=== PATIENT | male | born 1955 | race African-American/Black ===

== ENCOUNTER 2017-08-19 22:21 | Inpatient (IN) | payer MEDICARE, MEDICAID ==
[~2017-08-19] VITALS: Ht 188 cm; Wt 75.7 kg
[~2017-08-19 22:21] MED LIST: Ipratropium 0.02% Inh Soln 2.5ml UD HHN ONE; Solu-MEDROL 125mg Inj IVP ONE
[2017-08-19 22:25] VITALS: BP 140/98
--- NOTE | 2017-08-19 22:25 | Emergency Room Report ---
History of Present Illness General Chief Complaint: Dyspnea/Respdistress Source: Patient, EMS Present Illness HPI The patient presents via EMS for dyspnea. He has a history of COPD. He was smoking and drinking alcohol tonight. He was using his own inhalers at home but still felt short of breath. His initial oxygen saturation in the field was 92%. They gave him an albuterol treatment which is helping somewhat. The patient also had been drinking leni and is complaining about some abdominal discomfort. This is more distension feeling with pain rated 6/10, pressure and constant, non-radiating. No vomiting, diarrhea or constipation. He denies chest pain or sore throat. The shortness of breath has been fairly severe. No calf swelling/pain, dysuria, change in bowels. No rashes, headache. H/O chronic renal insufficiency. No dysuria, hematuria. Allergies: Coded Allergies: No Known Allergies (Unverified , 08/19/17) Patient History Past Medical History: see triage record Social History: Reports: smoking, alcohol use Social History Narrative at home Reviewed Nursing Documentation: PMH: Agreed, PSxH: Agreed Nursing Documentation-PMH Past Medical History: No History, Except For Hx Cardiac Problems: No - HIV+ Hx Hypertension: Yes Hx COPD: Yes Hx Dialysis: No - Chronic Renal Failure Review of Systems All Other Systems: negative except mentioned in HPI Physical Exam Vital Signs Date Time Temp Pulse Resp B/P (MAP) Pulse Ox O2 Delivery O2 Flow Rate FiO2 08/19/17 22:05 98.1 129 28 140/98 95 15.0 Sp02 EP Interpretation: reviewed, normal General Appearance: well appearing, no apparent distress, GCS 15 Head: normocephalic Eyes: bilateral eye PERRL, bilateral eye Scleral Injection ENT: moist mucus membranes Neck: supple Respiratory: rales, wheezing, expiration, inspiration Cardiovascular #1: regular rate, rhythm Cardiovascular #2: 2+ radial (R) Gastrointestinal: normal inspection, normal bowel sounds, non tender, no mass, distended - protruberant Musculoskeletal: back normal, gait/station normal, normal range of motion Neurologic: alert, oriented x3, grossly normal Psychiatric: depressed affect Skin: normal inspection, warm/dry Procedures Critical Care Time Critical Care Time Total Critical Care Time: 45 min bedside evaluation and treatment excludes procedures (EKG). Reason for critical care: respiratory distress, respiratory failure, sepsis Possible complications: hypotension, hypertension, AZ, shock, arrhythmias, metabolic acidosis, end organ damage, respiratory failure. Interventions: BIPAP and other respiratory interventions, sepsis resuscitation and treatment Course: Patient with resp distress. Aggressive treatment. ABG with resp failure and BIPAP started. Tolerated poorly. Repeated evaluations with adjustment of oxygen delivery (Venti mask, NC and others). Treatment of sepsis with fluid bolus and antibiotics. Higher level of admission. Consultations: nursing staff, EMS, respiratory, admitting MD Performed by: Dr. Gordon Tolerated well condition = serious Medical Decision Making Diagnostic Impression: Primary Impression: Right lower lobe pneumonia Qualified Codes: J18.1 - Lobar pneumonia, unspecified organism Additional Impressions: COPD exacerbation Sepsis Qualified Codes: A41.9 - Sepsis, unspecified organism Abdominal pain Qualified Codes: R10.84 - Generalized abdominal pain Respiratory distress ER Course Patient presents with dyspnea, wheezing, rales and hypoxia history of COPD. Differential includes pneumonia, bronchitis, exacerbation of COPD amongst others. We need to exclude acute myocardial infarction. Also regarding abdominal pain alcohol may be a factor but we need to ascertain whether he's actively bleeding and differential also includes ulcer, GERD and pancreatitis. Evaluation will be with EKG, chest x-ray and labs. He'll be treated with Solu Medrol, Pepcid, albuterol and Atrovent and mild hydration. Consideration for analgesia. EKG shows sinus tachycardia. Chest x-ray shows right-sided infiltrate with COPD. Labs are significant for leukocytosis. The patient is somewhat improved. Antibiotics are begun. The patient needs admission to the hospital for IV antibiotics due to comorbidities and risk for sepsis. Elevated lactic acid. Fluid bolus ordered. Grunting and wheezing. Repeat tx ordered. (ABG done before treatments). Sig hypoxia. Might need BIPAP. Will move up to SEAN. BIPAP ordered and started. Admit Dr. Gordon. BIPAP not tolerated. Change to 50% vent mask. After breathing treatments some improvement. Multiple re-evaluations with adjustment of oxygen. Analgesia repeated for abdominal pain. Laboratory Tests Test 08/19/17 22:40 08/20/17 01:30 08/20/17 01:40 White Blood Count 22.0 K/UL (4.8-10.8) H Red Blood Count 3.57 M/UL (4.70-6.10) L Hemoglobin 13.5 G/DL (14.2-18.0) L Hematocrit 40.5 % (42.0-52.0) L Mean Corpuscular Volume 113 FL (80-99) H Mean Corpuscular Hemoglobin 37.9 PG (27.0-31.0) H Mean Corpuscular Hemoglobin Concent 33.5 G/DL (32.0-36.0) Red Cell Distribution Width 13.9 % (11.6-14.8) Platelet Count 187 K/UL (150-450) Mean Platelet Volume 7.5 FL (6.5-10.1) Neutrophils (%) (Auto) % (45.0-75.0) Lymphocytes (%) (Auto) % (20.0-45.0) Monocytes (%) (Auto) % (1.0-10.0) Eosinophils (%) (Auto) % (0.0-3.0) Basophils (%) (Auto) % (0.0-2.0) Differential Total Cells Counted 100 Neutrophils % (Manual) 83 % (45-75) H Lymphocytes % (Manual) 8 % (20-45) L Monocytes % (Manual) 2 % (1-10) Eosinophils % (Manual) 0 % (0-3) Basophils % (Manual) 0 % (0-2) Band Neutrophils 7 % (0-8) Platelet Estimate Adequate Platelet Morphology Normal Red Blood Cell Morphology Macrocytosis 1+ Prothrombin Time 11.9 SEC (9.30-11.50) H Prothrombin Time INR 1.1 (0.9-1.1) PTT 41 SEC (23-33) H Sodium Level 134 MMOL/L (136-145) L Potassium Level 3.5 MMOL/L (3.5-5.1) Chloride Level 97 MMOL/L (98-107) L Carbon Dioxide Level 26 MMOL/L (21-32) Anion Gap 12 mmol/L (5-15) Blood Urea Nitrogen 18 mg/dL (7-18) Creatinine 1.4 MG/DL (0.55-1.30) H Estimate Glomerular Filtration Rate > 60 mL/min (>60) Glucose Level 126 MG/DL (74-106) H Lactic Acid Level 3.60 mmol/L (0.66-2.22) H Calcium Level 8.3 MG/DL (8.5-10.1) L Total Bilirubin 0.3 MG/DL (0.2-1.0) Aspartate Amino Transferase (AST) 44 U/L (15-37) H Alanine Aminotransferase (ALT) 28 U/L (12-78) Alkaline Phosphatase 70 U/L (46-116) Total Creatine Kinase 350 U/L (26-308) H Troponin I 0.005 ng/mL (0.000-0.056) Pro-B-Type Natriuretic Peptide 491 pg/mL (0-125) H Total Protein 7.0 G/DL (6.4-8.2) Albumin 3.0 G/DL (3.4-5.0) L Globulin 4.0 g/dL Albumin/Globulin Ratio 0.8 (1.0-2.7) L Serum Alcohol < 3 mg/dL Urine Color Pale yellow Urine Appearance Clear Urine pH 5 (4.5-8.0) Urine Specific [place] 1.015 (1.005-1.035) Urine Protein 2+ (NEGATIVE) H Urine Glucose (UA) Negative (NEGATIVE) Urine Ketones Negative (NEGATIVE) Urine Occult Blood 2+ (NEGATIVE) H Urine Nitrite Negative (NEGATIVE) Urine Bilirubin Negative (NEGATIVE) Urine Urobilinogen Normal MG/DL (0.0-1.0) Urine Leukocyte Esterase Negative (NEGATIVE) Urine RBC 5-10 /HPF (0 - 0) H Urine WBC 0-2 /HPF (0 - 0) Urine Squamous Epithelial Cells Few /LPF (NONE/OCC) Urine Bacteria None /HPF (NONE) Urine Coarse Granular Casts 0-2 /LPF (NONE) H Urine Opiates Screen Negative (NEGATIVE) Urine Barbiturates Screen Negative (NEGATIVE) Phencyclidine (PCP) Screen Negative (NEGATIVE) Urine Amphetamines Screen Negative (NEGATIVE) Urine Benzodiazepines Screen Negative (NEGATIVE) Urine Cocaine Screen Negative (NEGATIVE) Urine Marijuana (THC) Screen Positive (NEGATIVE) H Arterial Blood pH 7.456 (7.350-7.450) Arterial Blood Partial Pressure CO2 27.9 mmHg (35.0-45.0) L Arterial Blood Partial Pressure O2 49.4 mmHg (75.0-100.0) Arterial Blood HCO3 19.2 mmol/L (22.0-26.0) L Arterial Blood Oxygen Saturation 85.4 % (92.0-98.0) L Arterial Blood Base Excess -3.4 Gage Test Positive Microbiology Date/Time Source Procedure Growth Status 08/19/17 23:30 Nasal Nares Influenza Types A,B Antigen (RAMIN) - Final Complete EKG Diagnostic Results Rate: tachycardiac Rhythm: NSR ST Segments: no acute changes Rhythm Strip Diag. Results EP Interpretation: yes Rhythm: no PVC's, no ectopy, other - st Chest X-Ray Diagnostic Results Chest X-Ray Diagnostic Results : Chest X-Ray Ordered: Yes # of Views/Limited/Complete: 1 View Indication: Shortness of Breath EP Interpretation: Yes Interpretation: no effusion, no pneumothorax, other - R infiltrate Impression: Other PA Scribe Text Electronically signed by Jasper Gordon MD Status: improved Disposition: ADMITTED INPATIENT Condition: Serious Jasper Gordon M.D. Aug 19, 2017 22:25
[2017-08-19] MEDS: Albuterol ud Inhalation HHN SCH ×3 (22:32→22:55)
[2017-08-19 23:13] LABS: ANION GAP 12 mmol/L (5-15); CALCIUM 8.3 MG/DL (8.5-10.1); CARBON DIOXIDE 26 MMOL/L (21-32); CHLORIDE 97 MMOL/L (98-107); CREATININE 1.4 MG/DL (0.55-1.30); GLOMERULAR FILTRATION RATE > 60 mL/min (>60); POTASSIUM 3.5 MMOL/L (3.5-5.1); SODIUM 134 MMOL/L (136-145)
[2017-08-19 23:18] LABS: MEAN CORPUSCULAR HEMOGLOBIN 37.9 PG (27.0-31.0); MEAN CORPUSCULAR HGB CONC 33.5 G/DL (32.0-36.0); MEAN CORPUSCULAR VOLUME 113 FL (80-99); MEAN PLATELET VOLUME 7.5 FL (6.5-10.1); PLATELET COUNT 187 K/UL (150-450); RED BLOOD COUNT 3.57 M/UL (4.70-6.10); RED CELL DISTRIBUTION WIDTH 13.9 % (11.6-14.8)
[2017-08-19 23:21] LABS: INR 1.1 (0.9-1.1); PROTHROMBIN TIME 11.9 SEC (9.30-11.50)
[2017-08-19] MEDS ORDERED: cefTRIAXone 1 GM in NS 55 ML IVPB ONE (23:30)
[2017-08-19 23:36] LABS: ALANINE AMINOTRANSFERASE 28 U/L (12-78); ALBUMIN/GLOBULIN RATIO 0.8 (1.0-2.7); ASPARTATE AMINO TRANSFERASE 44 U/L (15-37)
[2017-08-19 23:53] LABS: BAND NEUTROPHILS % (MANUAL) 7 % (0-8); LYMPHOCYTES % (MANUAL) 8 % (20-45); NEUTROPHILS % (MANUAL) 83 % (45-75); TOTAL CELLS COUNTED 100
[2017-08-19 23:54] LABS: BASOPHILS % (MANUAL) 0 % (0-2); EOSINOPHILS % (MANUAL) 0 % (0-3); PLATELET ESTIMATE ADEQUATE; PLATELET MORPHOLOGY NORMAL
[2017-08-19 23:55] LABS: MACROCYTES 1+
[2017-08-20] VITALS (8 sets, daily range): BP systolic 134–167; BP diastolic 82–120
[2017-08-20 00:07] LABS: REFLEX LACTIC ACID YES OR NO YES
[2017-08-20 00:08] LABS: ALCOHOL < 3 mg/dL
[2017-08-20] MEDS ORDERED: Morphine Sulfate 2mg/ml Inj IVP ONE (01:45)
[2017-08-20 02:06] LABS: ABG ALLEN TEST POSITIVE; ABG BASE EXCESS -3.4; ABG PCO2 27.9 mmHg (35.0-45.0)
[2017-08-20 02:06] LABS: APPEARANCE,URINE CLEAR; KETONES,URINE NEGATIVE (NEGATIVE); LEUKOCYTE ESTERASE ,URINE NEGATIVE (NEGATIVE); NITRITE,URINE NEGATIVE (NEGATIVE); PH,URINE 5 (4.5-8.0); PROTEIN,URINE 2+ (NEGATIVE); UROBILINOGEN,URINE NORMAL MG/DL (0.0-1.0)
[2017-08-20] MEDS: Albuterol ud Inhalation HHN SCH ×6 (02:19→06:15)
[2017-08-20 02:21] LABS: SQUAMOUS EPITHELIAL CELL,UR FEW /LPF (NONE/OCC); WBC,URINE 0-2 /HPF (0 - 0)
[2017-08-20 02:22] LABS: COARSE GRANULAR CASTS,URINE 0-2 /LPF
[2017-08-20] MEDS: Solu-MEDROL 125mg Inj IVP SCH ×3 (06:40→22:05)
[2017-08-20] MEDS: Albuterol/Ipratropium 3ml neb HHN SCH ×5 (07:00→23:00)
[2017-08-20] MEDS: Azithromycin 250mg tab ORAL SCH (09:21)
--- NOTE | 2017-08-20 09:42 | Diagnostic Imaging Report ---
Indication: Reason For Exam: DYSPNEA Technique: XRAY Chest 1v Comparison:None Findings: The heart is normal in size. There is elevation of the apparent right hemidiaphragm. Linear densities are noted in both lung bases. Patchy airspace disease is present in the right midlung. There is also some linear density in the left mid lung. No pleural fluid. The bones are unremarkable. Impression: Bilateral atelectasis. Patchy airspace disease or atelectasis in the right midlung and in the left midlung.
[2017-08-20] MEDS ORDERED: NKM (10:48)
--- NOTE | 2017-08-20 17:15 | Consultation ---
DATE OF CONSULTATION: 08/20/2017 INFECTIOUS DISEASES CONSULTATION CONSULTING PHYSICIAN: Rosalia Almeida M.D. REFERRING PHYSICIAN: Jasper Gordon M.D. REASON FOR CONSULTATION: Pneumonia. HISTORY OF PRESENTING ILLNESS: This is a 62-year-old gentleman with history of HIV, hypertension, and COPD, who came in with shortness of breath and cough. He was found to have pneumonia and an Infectious Diseases consultation has been obtained for antibiotics. PAST MEDICAL HISTORY: 1. History of HIV. 2. History of Hypertension. 3. COPD. 4. Renal failure, on dialysis. MEDICATIONS: As an inpatient, the patient is on ceftriaxone, famotidine, azithromycin, albuterol, and Solu-Medrol. ALLERGIES: No known drug allergies. SOCIAL HISTORY: He is a smoker. He drinks alcohol. No history of drug use. FAMILY HISTORY: Unknown. REVIEW OF SYSTEMS: RESPIRATORY: He had fever and chills. He has cough. He has shortness of breath. No chest pain. CARDIAC: No chest pain. No palpitations. No dizziness. No syncope. GASTROINTESTINAL: No nausea. No vomiting. No abdominal pain or diarrhea. PHYSICAL EXAMINATION: VITAL SIGNS: Temperature of 97.7 degrees, T-max of 98.3 degrees, pulse of 114, respiratory rate 24, blood pressure 151/81, and O2 saturation of 97%. HEENT: Pupils equally reactive to light and accommodation. Mouth appears clean with no thrush. NECK: Supple. No adenopathy. No JVD. CARDIOVASCULAR: Regular rate and rhythm. No murmurs. LUNGS: Clear to auscultation bilaterally. No crackles. No wheezes. ABDOMEN: Soft and nontender. No organomegaly. EXTREMITIES: No cyanosis. No clubbing. No edema. LABORATORY DATA: White count 22, hemoglobin 13.5, hematocrit 40.5, MCV 113, and platelet count of 187,000 with neutrophils of 83%. Sodium 134, potassium 3.5, chloride 97, bicarbonate 26, BUN 18, creatinine 1.4, glucose 126, and calcium 8.3. Total bilirubin 0.3. AST 44, ALT 28, and alkaline phosphatase 70. CK of 350, troponin 0.005, and beta-natriuretic peptide 491. Total protein 7. Albumin 3. UA showing 0 to 2 white cells. Nasal swab was negative for influenza A and B. Chest x-ray showing bibasilar atelectasis, patchy airspace disease or atelectasis in the right mid lung and left mid lung. ASSESSMENT: 1. This is a 62-year-old gentleman with history of chronic obstructive pulmonary disease, renal failure, and hypertension, who comes in and is found to have pneumonia bilaterally. 2. Leukocytosis. 3. History of human immunodeficiency virus. PLAN: 1. Continue ceftriaxone and azithromycin. 2. We will order sputum for Gram stain and culture. 3. We will order for serum Legionella antibody. 4. We will order for mycoplasma serology. 5. We will follow up cultures and adjust antibiotics accordingly. I would like to thank Dr. Gordon for this consultation. Rosalia Almeida M.D. DR: Joe JOB#: [id number] CC: Jasper Gordon M.D.
--- NOTE | 2017-08-20 17:57 | Consultation ---
Consult Note Consult Note PULMONARY CONSULTATION CONSULTING PHYSICIAN: Germán Schmidt M.D. REFERRING PHYSICIAN: Jasper Gordon M.D. REASON FOR CONSULTATION: Pneumonia. HISTORY OF PRESENTING ILLNESS: This is a 62-year-old gentleman with history of HIV, hypertension, and COPD, who came in with shortness of breath and cough. He was found to have pneumonia. Overnight he was on BiPAP; this has now been dioscontinued. PAST MEDICAL HISTORY: 1. History of HIV. 2. History of Hypertension. 3. COPD. 4. Renal failure, on dialysis. MEDICATIONS: As an inpatient, the patient is on ceftriaxone, famotidine, azithromycin, albuterol, and Solu-Medrol. ALLERGIES: No known drug allergies. SOCIAL HISTORY: He is a smoker. He drinks alcohol. No history of drug use. FAMILY HISTORY: Unknown. REVIEW OF SYSTEMS: RESPIRATORY: He had fever and chills. He has cough. He has shortness of breath. No chest pain. CARDIAC: No chest pain. No palpitations. No dizziness. No syncope. GASTROINTESTINAL: No nausea. No vomiting. No abdominal pain or diarrhea. PHYSICAL EXAMINATION: VITAL SIGNS: Temperature of 97.7 degrees, T-max of 98.3 degrees, pulse of 114, respiratory rate 24, blood pressure 151/81, and O2 saturation of 97%. HEENT: Pupils equally reactive to light and accommodation. Mouth appears clean with no thrush. NECK: Supple. No adenopathy. No JVD. CARDIOVASCULAR: Regular rate and rhythm. No murmurs. LUNGS: Clear to auscultation bilaterally. No crackles. No wheezes. ABDOMEN: Soft and nontender. No organomegaly. EXTREMITIES: No cyanosis. No clubbing. No edema. LABORATORY DATA: White count 22, hemoglobin 13.5, hematocrit 40.5, MCV 113, and platelet count of 187,000 with neutrophils of 83%. Sodium 134, potassium 3.5, chloride 97, bicarbonate 26, BUN 18, creatinine 1.4, glucose 126, and calcium 8.3. Total bilirubin 0.3. AST 44, ALT 28, and alkaline phosphatase 70. CK of 350, troponin 0.005, and beta-natriuretic peptide 491. Total protein 7. Albumin 3. UA showing 0 to 2 white cells. Nasal swab was negative for influenza A and B. Chest x-ray showing bibasilar atelectasis, patchy airspace disease or atelectasis in the right mid lung and left mid lung. ASSESSMENT: 1. This is a 62-year-old gentleman with history of chronic obstructive pulmonary disease, renal failure, and hypertension, who comes in and is found to have pneumonia bilaterally. 2. Leukocytosis. 3. History of human immunodeficiency virus. PLAN: 1. Continue ceftriaxone and azithromycin. 2. DC BiPAP; continue O2. I would like to thank Dr. Gordon for this consultation. Marti Busby Omar Syed MD Aug 20, 2017 17:57
--- NOTE | 2017-08-20 19:00 | History and Physical Report ---
DATE OF ADMISSION: 08/19/2017 REASON FOR ADMISSION: Acute respiratory distress, hypoxia and community-acquired pneumonia in a human immunodeficiency virus positive patient. HISTORY OF PRESENT ILLNESS: This is a 62-year-old male with human immunodeficiency virus developed worsening cough, congestion and shortness of breath this evening. He has been using inhalers, but did not improve. He notes drinking and smoking excessively this afternoon. He was seen in the emergency room and worsening respiratory parameters were noted prompting hospitalization. The patient is a poor historian. He is also uncooperative with questioning and does not know any information about his usual medications, although states there are many. PAST MEDICAL HISTORY: COPD, HIV positive, hypertension and chronic kidney disease. MEDICATIONS: Prior to admission, not known. ALLERGIES: None known. SOCIAL HISTORY: Positive smoking and alcohol as described above. Denied substance abuse. FAMILY HISTORY: Noncontributory. REVIEW OF SYSTEMS: The patient unable to cooperate for additional data at this time. PHYSICAL EXAMINATION: VITAL SIGNS: Afebrile, blood pressure 140/98, pulse 129, respirations 28 and oxygen saturation on 15 liters 95%. No thrush. Accessory muscle use. LUNGS: Bilateral breath sounds with rhonchi. Expiratory wheezes and few rales. HEART: Regular rhythm and rate. Normal S1 and S2 with a fourth heart sound. ABDOMEN: Soft and nontender. EXTREMITIES: No edema. LABORATORY AND DIAGNOSTIC DATA: Chest x-ray revealed bilateral atelectasis, right and left mid lung patchy infiltrate. EKG, sinus tachycardia. Laboratory data reviewed. IMPRESSION: 1. Community-acquired pneumonia. 2. Human immunodeficiency virus positive. 3. Chronic obstructive pulmonary disease with acute exacerbation and on bronchospasm. 4. Accelerated hypertension/hypertensive urgency. 5. Lactic acidosis. 6. Hypoxia. PLAN: 1. Casey culture. 2. Antimicrobials. 3. Inhaled bronchodilators. 4. Intravenous steroids. 5. Cautious hydration. 6. BiPAP support. 7. Titrate antihypertensives. 8. Attempt to expand database and resume human immunodeficiency virus medications. 9. Pulmonary and Infectious Disease consultation. Jasper Gordon M.D. DR: RHIANNON JOB#: [id number] CC: BEV
--- NOTE | 2017-08-20 19:00 | Progress Note ---
DATE: 08/20/2017 INTERNAL MEDICINE PROGRESS NOTE SUBJECTIVE: The patient still has cough, congestion, and shortness of breath. He is unable to provide information on his usual medication regimen still, which includes HIV drugs. He is less short of breath than he was yesterday evening and had been on BiPAP support. OBJECTIVE: VITAL SIGNS: Blood pressure 167/101, pulse 117, respirations 23, and afebrile. Oxygen saturation on 2 liters is 91% to 98%. LUNGS: Mild accessory muscle use. Coarse breath sounds with rhonchi bilaterally. Few expiratory wheezes. HEART: Regular rhythm and rate. Normal S1 and S2 with a fourth heart sound. ABDOMEN: Soft. EXTREMITIES: No edema. LABORATORY DATA: Lactic acid is 6.7 from early this morning. IMPRESSION: 1. Pneumonia. 2. Chronic obstructive pulmonary disease exacerbation. 3. Hypoxia. 4. Lactic acidosis. 5. Acute respiratory insufficiency. 6. Acute diastolic congestive heart failure. 7. History of human immunodeficiency virus/acquired immune deficiency syndrome. 8. Malignant hypertension. PLAN: 1. Empiric antibiotics. 2. Inhaled bronchodilators. 3. Intravenous steroids. 4. Await sputum cultures. 5. Social service to assist with attempt to obtain usual medication regimen information and expand database. 6. Echocardiogram to assess left ventricular function especially PA systolic pressures. 7. DVT prophylaxis. 8. BiPAP p.r.n. 9. AntiHTN rx added. Jasper Gordon M.D. DR: NEGIN JOB#: [id number] CC: BEV
--- NOTE | 2017-08-20 19:09 | Cardiology Report ---
APPROVED REPORT EKG Measurement Heart [id number] Sinus tachycardia Otherwise normal ECG
[2017-08-21] VITALS: BP 160/68
[2017-08-21] MEDS ORDERED: cefTRIAXone 1 GM in D5W 55 ML IVPB SCH (01:00)
[2017-08-21] MEDS: Albuterol/Ipratropium 3ml neb HHN SCH ×3 (03:21→11:00)
[2017-08-21 04:00] VITALS: BP 156/89
[2017-08-21] MEDS: Solu-MEDROL 125mg Inj IVP SCH (06:36)
[2017-08-21 08:00] VITALS: BP 162/94
--- NOTE | 2017-08-21 09:28 | Pulmonology Progress Note ---
Assessment/Plan Assessment/Plan 1. This is a 62-year-old gentleman with history of chronic obstructive pulmonary disease, renal failure, and hypertension, who comes in and is found to have pneumonia bilaterally. 2. Leukocytosis. 3. History of human immunodeficiency virus. PLAN: 1. Continue ceftriaxone and azithromycin. 2. DC BiPAP; continue O2. 3. DC IV fluids May need bronch to exclude R mainstem endobronchial lesion; has dense R lower lobe consolidation as well as elevated R hemidiaphragm; may be done as outpt as well Subjective Interval Events: +cough; congestion Constitutional: Reports: no symptoms Respiratory: Reports: productive cough, shortness of breath Cardiovascular: Reports: no symptoms Gastrointestinal/Abdominal: Reports: no symptoms Genitourinary: Reports: no symptoms Allergies: Coded Allergies: No Known Allergies (Unverified , 08/19/17) Objective Last 24 Hour Vital Signs Date Time Temp Pulse Resp B/P (MAP) Pulse Ox O2 Delivery O2 Flow Rate FiO2 08/21/17 08:00 125 08/21/17 08:00 97.5 129 22 162/94 78 Room Air 08/21/17 04:00 97.7 112 23 156/89 80 Room Air 08/21/17 04:00 116 08/21/17 03:22 114 20 96 Nasal Cannula 2.0 28 08/21/17 03:15 114 25 85 Room Air 21 08/21/17 00:00 97.7 112 25 160/68 91 Room Air 08/21/17 00:00 109 08/20/17 23:00 Nasal Cannula 2.0 28 08/20/17 23:00 Nasal Cannula 2.0 28 08/20/17 20:00 98.2 119 20 152/90 98 Nasal Cannula 2.0 08/20/17 20:00 115 08/20/17 19:10 99 18 96 Nasal Cannula 2.0 28 08/20/17 19:00 89 20 97 Room Air 21 08/20/17 17:46 120 155/97 08/20/17 16:00 98.0 120 23 155/97 97 Nasal Cannula 2.0 08/20/17 16:00 116 08/20/17 14:40 110 24 99 Nasal Cannula 2.0 28 08/20/17 14:30 110 24 98 Nasal Cannula 2.0 28 08/20/17 12:00 98.0 117 23 167/101 91 Nasal Cannula 2.0 08/20/17 11:59 114 26 98 Nasal Cannula 2.0 28 08/20/17 11:54 114 24 97 Room Air 21 08/20/17 10:00 97.7 125 24 151/81 92 Nasal Cannula 2.0 28 08/20/17 09:30 97.7 125 24 163/120 92 Nasal Cannula 2.0 Intake and Output 08/20/17 08/21/17 19:00 07:00 Intake Total 775 ml 805 ml Output Total 800 ml 0 ml Balance -25 ml 805 ml Intake Oral 400 ml IV Total 375 ml 805 ml Output Urine Total 800 ml 0 ml # Voids 5 # Bowel Movements 1 1 General Appearance: no acute distress HEENT: normocephalic Respiratory/Chest: chest wall non-tender, decreased breath sounds, crackles/ rales Cardiovascular: normal peripheral pulses, normal rate Abdomen: normal bowel sounds, soft, non tender Microbiology Date/Time Source Procedure Growth Status 08/19/17 22:45 Blood Blood Culture - Preliminary NO GROWTH AFTER 24 HOURS Resulted 08/19/17 22:30 Blood Blood Culture - Preliminary NO GROWTH AFTER 24 HOURS Resulted 08/20/17 12:00 Sputum Gram Stain Pending Resulted 08/20/17 12:00 Sputum Culture - Preliminary Staphylococcus Aureus Resulted 08/20/17 05:50 Sputum Gram Stain - Final Complete 08/20/17 05:50 Sputum Sputum Culture - Final CULTURE NOT PERFORMED ... Complete 08/19/17 23:30 Nasal Nares Influenza Types A,B Antigen (RAMIN) - Final Complete Laboratory Tests 08/20/17 13:30: Legionella pneumophila Group 1 Ab [Pending], Legionella pneumophilia IgM Group 1 [Pending], Mycoplasma pneumoniae IgG Antibody [Pending], Mycoplasma pneumoniae IgM Ab Titer [Pending] Current Medications Medications (Trade) Dose Ordered Sig/Aletha Route PRN Reason Start Time Stop Time Status Last Admin Dose Admin Albuterol/ Ipratropium (Albuterol/ Ipratropium) 3 ml Q4HRT HHN 08/20/17 07:00 08/25/17 06:59 08/21/17 03:21 Amlodipine Besylate (Norvasc) 10 mg DAILY ORAL 08/20/17 18:00 09/19/17 17:59 08/20/17 17:46 Azithromycin (Zithromax) 500 mg DAILY ORAL 08/20/17 09:00 08/27/17 08:59 08/20/17 09:21 Ceftriaxone Sodium 1 gm/ Dextrose 55 ml @ 110 mls/hr Q24H IVPB 08/21/17 01:00 08/28/17 00:59 08/21/17 01:29 Famotidine (Pepcid) 20 mg BID ORAL 08/20/17 09:00 09/19/17 08:59 08/20/17 17:16 Methylprednisolone Sodium Succinate (Solu-MEDROL) 60 mg EVERY 8 HOURS IVP 08/20/17 06:00 09/19/17 05:59 08/21/17 06:36 Sodium Chloride 1,000 ml @ 75 mls/hr [id number] IV 08/20/17 03:45 09/19/17 03:44 08/21/17 06:37 Germán Schmidt MD Aug 21, 2017 09:28
[2017-08-21 09:57] VITALS: BP 164/94
[2017-08-21] MEDS: Azithromycin 250mg tab ORAL SCH (09:58)
[2017-08-21 11:46] LABS: MEAN CORPUSCULAR HEMOGLOBIN 37.1 PG (27.0-31.0); MEAN CORPUSCULAR HGB CONC 31.8 G/DL (32.0-36.0); MEAN CORPUSCULAR VOLUME 117 FL (80-99); MEAN PLATELET VOLUME 6.7 FL (6.5-10.1); PLATELET COUNT 197 K/UL (150-450); RED BLOOD COUNT 3.18 M/UL (4.70-6.10); RED CELL DISTRIBUTION WIDTH 14.5 % (11.6-14.8)
[2017-08-21 12:07] LABS: BAND NEUTROPHILS % (MANUAL) 8 % (0-8); BASOPHILS % (MANUAL) 0 % (0-2); EOSINOPHILS % (MANUAL) 0 % (0-3); HYPOCHROMASIA 1+; LYMPHOCYTES % (MANUAL) 3 % (20-45); MACROCYTES 1+; NEUTROPHILS % (MANUAL) 87 % (45-75); PLATELET ESTIMATE ADEQUATE; PLATELET MORPHOLOGY NORMAL; TOTAL CELLS COUNTED 100
--- NOTE | 2017-08-21 12:08 | Infectious Diseases Prog Note ---
Assessment/Plan Assessment/Plan antibiotics : ceftriaxone, azithromycin A 1. staph aureus pneumonia 2. gram positive sepsis 3. HIV 4. HTN 5. renal failure 6. leucocytosis improving P 1. continue ceftriaxone 2. d/c azithromycin 3. start iv vancomycin 4. will follow up cultures Subjective Constitutional: Denies: fever, chills Respiratory: Reports: shortness of breath, Denies: dry cough Gastrointestinal/Abdominal: Denies: nausea, vomiting, diarrhea Musculoskeletal: Denies: pain Allergies: Coded Allergies: No Known Allergies (Unverified , 08/19/17) Objective Vital Signs Last 24 Hour Vital Signs Date Time Temp Pulse Resp B/P (MAP) Pulse Ox O2 Delivery O2 Flow Rate FiO2 08/21/17 09:57 129 164/94 08/21/17 08:00 125 08/21/17 08:00 97.5 129 22 162/94 78 Room Air 08/21/17 04:00 97.7 112 23 156/89 80 Room Air 08/21/17 04:00 116 08/21/17 03:22 114 20 96 Nasal Cannula 2.0 28 08/21/17 03:15 114 25 85 Room Air 21 08/21/17 00:00 97.7 112 25 160/68 91 Room Air 08/21/17 00:00 109 08/20/17 23:00 Nasal Cannula 2.0 28 08/20/17 23:00 Nasal Cannula 2.0 28 08/20/17 20:00 98.2 119 20 152/90 98 Nasal Cannula 2.0 08/20/17 20:00 115 08/20/17 19:10 99 18 96 Nasal Cannula 2.0 28 08/20/17 19:00 89 20 97 Room Air 21 08/20/17 17:46 120 155/97 08/20/17 16:00 98.0 120 23 155/97 97 Nasal Cannula 2.0 08/20/17 16:00 116 08/20/17 14:40 110 24 99 Nasal Cannula 2.0 28 08/20/17 14:30 110 24 98 Nasal Cannula 2.0 28 Height (Feet): 6 Height (Inches): 2.00 Weight (Pounds): 167 Respiratory/Chest: rhonchi - bilaterally Cardiovascular: normal rate, regular rhythm, no gallop/murmur Abdomen: soft, non tender Extremities: no edema Microbiology Date/Time Source Procedure Growth Status 08/19/17 22:45 Blood Blood Culture - Preliminary Resulted 08/19/17 22:30 Blood Blood Culture - Preliminary Resulted 08/20/17 12:00 Sputum Gram Stain Pending Resulted 08/20/17 12:00 Sputum Culture - Preliminary Staphylococcus Aureus Resulted 08/20/17 05:50 Sputum Gram Stain - Final Complete 08/20/17 05:50 Sputum Sputum Culture - Final CULTURE NOT PERFORMED ... Complete 08/19/17 23:30 Nasal Nares Influenza Types A,B Antigen (RAMIN) - Final Complete Laboratory Tests Test 08/20/17 13:30 08/21/17 11:15 Legionella pneumophila Group 1 Ab Pending Legionella pneumophilia IgM Group 1 Pending Mycoplasma pneumoniae IgG Antibody Pending Mycoplasma pneumoniae IgM Ab Titer Pending White Blood Count 18.0 K/UL (4.8-10.8) H Red Blood Count 3.18 M/UL (4.70-6.10) L Hemoglobin 11.8 G/DL (14.2-18.0) L Hematocrit 37.1 % (42.0-52.0) L Mean Corpuscular Volume 117 FL (80-99) H Mean Corpuscular Hemoglobin 37.1 PG (27.0-31.0) H Mean Corpuscular Hemoglobin Concent 31.8 G/DL (32.0-36.0) L Red Cell Distribution Width 14.5 % (11.6-14.8) Platelet Count 197 K/UL (150-450) Mean Platelet Volume 6.7 FL (6.5-10.1) Neutrophils (%) (Auto) % (45.0-75.0) Lymphocytes (%) (Auto) % (20.0-45.0) Monocytes (%) (Auto) % (1.0-10.0) Eosinophils (%) (Auto) % (0.0-3.0) Basophils (%) (Auto) % (0.0-2.0) Neutrophils % (Manual) Pending Lymphocytes % (Manual) Pending Platelet Estimate Pending Platelet Morphology Pending Sodium Level Pending Potassium Level Pending Chloride Level Pending Carbon Dioxide Level Pending Blood Urea Nitrogen Pending Creatinine Pending Estimat Glomerular Filtration Rate Pending Glucose Level Pending Lactic Acid Level Pending Calcium Level Pending Magnesium Level Pending Total Bilirubin Pending Aspartate Amino Transf (AST/SGOT) Pending Alanine Aminotransferase (ALT/SGPT) Pending Alkaline Phosphatase Pending Total Protein Pending Albumin Pending Globulin Pending Thyroid Stimulating Hormone (TSH) Pending JENARO RODGERS Aug 21, 2017 12:08
[2017-08-21 12:11] LABS: ALANINE AMINOTRANSFERASE 38 U/L (12-78); ALBUMIN/GLOBULIN RATIO 0.6 (1.0-2.7); ANION GAP 10 mmol/L (5-15); ASPARTATE AMINO TRANSFERASE 48 U/L (15-37); CALCIUM 8.1 MG/DL (8.5-10.1); CARBON DIOXIDE 24 MMOL/L (21-32); CHLORIDE 102 MMOL/L (98-107); CREATININE 0.9 MG/DL (0.55-1.30); GLOMERULAR FILTRATION RATE > 60 mL/min (>60); POTASSIUM 3.4 MMOL/L (3.5-5.1); SODIUM 136 MMOL/L (136-145); THYROID STIMULATING HORMONE 0.095 uiU/mL (0.358-3.740); TOTAL PROTEIN 6.6 G/DL (6.4-8.2)
[2017-08-21 12:15] LABS: REFLEX LACTIC ACID YES OR NO YES
[2017-08-21] MEDS ORDERED: Vancomycin 1.5 GM/D5W 250ML IVPB SCH (13:30)
[2017-08-21] MEDS ORDERED: Vancomycin 1.5 GM/D5W 250ML IVPB ONE ×2 (13:30→14:00)
[2017-08-21] MEDS ORDERED: Tubing IV Secondary IV ONE (15:14)
--- NOTE | 2017-08-21 15:40 | Diagnostic Imaging Report ---
Indication: Dyspnea Comparison: 08/19/2017 A single view chest radiograph was obtained. Findings: Heart is borderline in size. Right perihilar infiltrate versus atelectasis demonstrated. Mild congestion suspected with interstitial prominence and vascular prominence. IMPRESSION: Suspected mild CHF/interstitial edema. Right perihilar atelectasis versus pneumonia
[2017-08-22] MEDS ORDERED: Vancomycin 1gm/D5W 275ml IVPB SCH ×2 (01:00)
--- NOTE | 2017-08-22 04:30 | Progress Note ---
DATE: 08/21/2017 INTERNAL MEDICINE PROGRESS NOTE SUBJECTIVE: The patient has less congestion and cough. He has some loose stools. His sputum cultures were positive for Staph aureus with sensitivities pending. The patient is anxious to go home. OBJECTIVE: VITAL SIGNS: Blood pressure 162/94, heart rate 129, respiratory rate 22, and afebrile. LUNGS: Coarse breath sounds. Scattered rhonchi. HEART: Regular rhythm. Rapid rate. Normal S1 and S2. ABDOMEN: Soft. EXTREMITIES: No edema. LABORATORY DATA: White count 18 and hemoglobin 11.8. Lactic acid 2.7. Potassium 3.4, BUN 20, and creatinine 0.9. Albumin 2.4. IMPRESSION: 1. Staphylococcus aureus pneumonia. 2. HIV positive. 3. Hypertensive heart disease with labile blood pressure. 4. Hypokalemia. 5. Lactic acidosis. 6. Severe protein-calorie malnutrition. 7. COPD. PLAN: 1. Antibiotics per Infectious Disease healthcare market consultant. 2. Bronchodilators and respiratory hygiene. 3. Replace potassium. 4. Protein supplement. 5. Hydration. 6. Encouraging the patient to remain in hospital to complete his therapy for adequate recovery. The patient is competent to make his medical decisions. Jasper Gordon M.D. DR: AR JOB#: [id number] CC:
[2017-08-22 11:37] LABS: OTHERS PATHOLOGIST COMMENT
[2017-08-22 17:09] LABS: L.PNEUMOPHILIA SERO-1 <0.91 OD ratio (0.00-0.90)
[2017-08-22 20:24] LABS: MYCOPLASMA PNEUMONIAE AB IGG <100 U/mL (0-99); MYCOPLASMA PNEUMONIAE AB IGM <770 U/mL (0-769)
--- NOTE | 2017-08-23 08:46 | Discharge Summary ---
Discharge Summary Hospital Course Date of Admission Aug 20, 2017 at 00:21 Date of Discharge Aug 21, 2017 at 15:15 Admitting Diagnosis pneumonia, COPD HPI Kenyon Kasper is a 62 year old male who was admitted on Aug 20, 2017 at 00:21 for Pneumonia/Chronic Obstructive Pulmonary Disease Hospital Course [id number] Discharge Discharge Disposition Patient left AMA Discharge Diagnoses: Ina Monzon NP Aug 23, 2017 08:46
--- NOTE | 2017-08-23 22:15 | Discharge Summary 2 SIG ---
DATE OF ADMISSION: 08/20/2017 DATE OF DISCHARGE: 08/21/2017 CONSULTANTS: 1. Rosalia Almeida M.D. 2. Germán Schmidt M.D. BRIEF HOSPITAL COURSE: The patient is a 62-year-old male with human immunodeficiency virus, developed worsening cough, congestion, and shortness of breath. He had been using inhalers, however, symptoms did not improve. He notes drinking and smoking excessively. He presented to ED with worsening respiratory parameters. At ED, he was initially placed on BiPAP due to significant hypoxia. He had elevated WBC count of 22. Lactic acid was 3.6. Chest x-ray showed bilateral atelectasis with patchy airspace disease or atelectasis on the right mid lung and in the left mid lung. EKG was in sinus tachycardia. He was given IV fluids and nebulizer treatments. He was then admitted to [facility] for community-acquired pneumonia, HIV, COPD with acute exacerbation, bronchospasms, and hypertensive urgency. He was placed on bronchodilators and started on IV steroids. He was initially on BiPAP and BiPAP was discontinued and was given O2 support. He was started on ceftriaxone and azithromycin pending culture results. He was given IV Solu-Medrol 60 mg IV push q.8 h. Sputum culture showed growth of Staph aureus. Blood culture with gram-positive sepsis. Azithromycin was discontinued and was started on IV vancomycin. Full treatment was not carried out as the patient signed out against medical advice. FINAL DIAGNOSES: 1. Staphylococcus aureus pneumonia. 2. Human immunodeficiency virus positive. 3. Hypertensive heart disease with labile blood pressure. 4. Hypokalemia. 5. Lactic acidosis. 6. Severe protein-calorie malnutrition. 7. Chronic obstructive pulmonary disease with acute exacerbation. DISPOSITION: The patient left AMA. Jasper Gordon M.D. I have been assigned to dictate discharge summary on this account and I was not involved in the patient's management. Ina Monzon N.P. DR: Jason JOB#: [id number] CC: BEV
[2017-08-24 17:09] LABS: L.PNEUMOPHILIA IGM SERO-1 < 1:16 (< 1:16)
--- NOTE | 2017-09-03 21:47 | Cardiology Report ---
APPROVED REPORT EXAM: Two-dimensional and M-mode echocardiogram with Doppler and color Doppler. INDICATION Hypertension/HCVD M-Mode DIMENSIONS IVSd0.8 (0.7-1.1cm)Left Atrium (MM)3.9 (1.6-4.0cm) LVDd5.0 (3.5-5.6cm)Aortic Root3.7 (2.0-3.7cm) PWd1.1 (0.7-1.1cm)Aortic Cusp Exc.2.0 (1.5-2.0cm) LVDs3.2 (2.5-4.0cm) PWs1.7 cm Normal left ventricular chamber size, systolic function and wall motion. Left ventricular ejection fraction estimated to be 55 %. No evidence of left ventricular hypertrophy. Anterior Echo-free space, may be due to pericardial fat or effusion. All other cardiac chamber sizes are within normal limits. Focal aortic valve sclerosis with adequate cusp excursion. Thickened mitral valve leaflets with normal excursion. Mitral annulus and aortic root calcification. Normal pulmonic valve structure. Normal tricuspid valve structure. IVC at normal size with physiologic collapse. A color flow and spectral Doppler study was performed and revealed: Trace aortic regurgitation. Moderate mitral regurgitation. Mitral diastolic velocities suggest mild left ventricular dysfunction (Grade I ). Trace tricuspid regurgitation. Tricuspid systolic velocities suggests peak right ventricular systolic pressure of 23 mmHg. No pulmonic regurgitation present.
== END 2017-08-21 15:15 | disposition left against medical advice (07) | DRG 871 ==
LOC: EDBD 22:21 → EMR 23:40 → 4E 08-20 00:21 → EDBEDREQ 08-20 01:24 → 2W 08-20 05:41
PROC: 5A09357 Assistance with Respiratory Ventilation, Less than 24 Consecutive Hours, Continuous Positive Airway Pressure (ICD-10-PCS; principal; 2017-08-20)
DX: A41.89 Other specified sepsis (principal); I50.31 Acute diastolic (congestive) heart failure; E43 Unspecified severe protein-calorie malnutrition; J15.211 Pneumonia due to Methicillin susceptible Staphylococcus aureus; E87.2 Acidosis; N18.6 End stage renal disease; J44.0 Chronic obstructive pulmonary disease with (acute) lower respiratory infection; J44.1 Chronic obstructive pulmonary disease with (acute) exacerbation; I13.2 Hypertensive heart and chronic kidney disease with heart failure and with stage 5 chronic kidney disease, or end stage renal disease; R00.0 Tachycardia, unspecified; Z72.0 Tobacco use; I16.0 Hypertensive urgency; R09.02 Hypoxemia; Z53.21 Procedure and treatment not carried out due to patient leaving prior to being seen by health care provider; Z99.2 Dependence on renal dialysis; D72.829 Elevated white blood cell count, unspecified; E87.6 Hypokalemia; Z21 Asymptomatic human immunodeficiency virus [HIV] infection status; Z68.21 Body mass index [BMI] 21.0-21.9, adult
CPT/HCPCS: 36415; 36600; 71010; 80053; 80307; 80329; 81003; 82550; 82803; 83605; 83735; 83880; 84443; 84484; 85007; 85025; 85610; 85730; 86710; 86713; 86738; 87040; 87070; 87181; 87205; 93005; 93306; 94640; 94660; 94664; 99285; J2405; J7620